=== PATIENT | male | born 1960 | race Caucasian/White ===

== ENCOUNTER 2018-12-01 15:05 | Emergency (ER) | payer MEDICARE, OTHER ==
[~2018-12-01] VITALS: Ht 165.1 cm; Wt 73.6 kg
[~2018-12-01 15:05] MED LIST: APIX2.5T PO; CEPH500 PO; CLON1 PO; COD30 PO; FOLI1CAP2 PO; METO50 PO; PHOSLOC PO
[2018-12-01] MEDS ORDERED: ASPI81 PO (15:14)
[2018-12-01] MEDS ORDERED: GABA-529 PO (15:14)
[2018-12-01 15:25] VITALS: BP 136/72
[2018-12-01] MEDS: HYDROCODONE/ACETAMINOPHEN 5-325 MG TABLET PO ONE (15:49)
== END 2018-12-01 17:05 | disposition home or self-care (01) ==
LOC: EMS 15:07
DX: G89.29 Other chronic pain (principal); M25.511 Pain in right shoulder; I10 Essential (primary) hypertension; I48.91 Unspecified atrial fibrillation; Z79.82 Long term (current) use of aspirin; Z79.01 Long term (current) use of anticoagulants; Z79.899 Other long term (current) drug therapy

== ENCOUNTER 2019-10-22 18:49 | Emergency (ER) | payer MEDICARE, OTHER ==
[~2019-10-22] VITALS: Ht 167.6 cm; Wt 80.9 kg
[~2019-10-22 18:49] MED LIST changes: +ACET-3207 PO; +BISA-151 PO; +CEFX1I IV; -CEPH500 PO; -CLON1 PO; +CLON2 PO; -COD30 PO; +DSS100 PO; +EPOE4000 SQ; -FOLI1CAP2 PO; +KETO15I IV; +LEVO25TA9 PO; +LEVO25VI4 IV; +METO-558 PO; -METO50 PO; +MORP2CAR IM; +PANT40TA25 PO; +PERCT PO; +VITA0.4T7 PO
[2019-10-22 19:49] VITALS: BP 126/67
== END 2019-10-22 20:42 | disposition home or self-care (01) ==
LOC: EMS 18:51
DX: S61.412A Laceration without foreign body of left hand, initial encounter (principal); I48.91 Unspecified atrial fibrillation; I13.2 Hypertensive heart and chronic kidney disease with heart failure and with stage 5 chronic kidney disease, or end stage renal disease; N18.6 End stage renal disease; I50.9 Heart failure, unspecified; Z99.2 Dependence on renal dialysis; W07.XXXA Fall from chair, initial encounter; Y93.89 Activity, other specified; Y92.89 Other specified places as the place of occurrence of the external cause; Y99.8 Other external cause status